=== PATIENT | male | born 1995 | race Caucasian/White ===

== ENCOUNTER 2017-03-02 09:43 | Emergency (ER) | payer SELFPAY ==
--- NOTE | 2017-03-02 11:06 | ERNOTE ---
Upper Extremity HPI - Narrative Date of Service: 03/02/17 - General Extremities Pain Location: hand: right Time Seen by Provider: 03/02/17 11:04 Source: patient, RN notes reviewed Exam Limitations: no limitations - Immun/Allergies/Home Medications Immunizations: IMMUNIZATION HX Immunizations Up to Date Yes History of Influenza Vaccine Yes Hx Pneumococcal Vaccination No Allergies/Adverse Reactions: Allergies Allergy/AdvReac Type Severity Reaction Status Date / Time Iodine and Iodide Containing Allergy Intermediate Hives Verified 03/02/17 10:17 Produc Home Medications: HOME MEDICATIONS NK [No Home Medication] 03/02/17 [Last Taken Unknown] - History of Present Illness Narrative: Right hand pain and swelling - punched a tree last night, also has abrasions, reports tetanus is current Also reports a cough for several days Occurred: yesterday Location of Incident: home Severity: mild Method of Injury: Reports: direct blow Loss of Consciousness: Reports: no loss of consciousness Associated Symptoms: Denies: tingling, weakness, numbness distally Other Injuries: Reports: none Prior Treament: Denies: recently seen Review of Systems - Review of Systems Constitutional: Absent: fever, chills, malaise EYE: Present: no symptoms reported ENT: Present: nose congestion, nasal drainage. Absent: ear pain, sore throat Respiratory: Present: cough. Absent: shortness of breath, wheezing Cardiology: Absent: chest pain, syncope Gastrointestinal/Abdominal: Absent: nausea, abdominal pain Genitourinary: Present: no symptoms reported Musculoskeletal: Present: joint pain, joint swelling Skin: Present: change in color. Absent: rash, lesions Neurological: Absent: headache, dizziness/light-headedness Endocrine: Present: no symptoms reported Hematologic/Lymphatic: Present: no symptoms reported Psych: Present: no symptoms reported - Patient's Past Medical History Patient History - Medical: No pertinent hx Patient History - Cardiac/Respiratory: No pertinent hx Patient History - Cancer: No Hx of Cancer Patient History - Surgical Procedures: Appendectomy Patient History - Other: None - Social History Living Situations: other Abuse History: No History of abuse Psych History: No pertinent hx Smoking Status: Current every day smoker Cigarettes Packs Per Day: 1 Have you smoked in the past 12 months: Yes Do you dip or chew tobacco: Yes Alcohol Use: occasionally Drug Use: none - Immunizations Immunizations Up to Date: Yes Hx Pneumococcal Vaccination: No History of Influenza Vaccine: Yes Physical Exam - Physical Exam General Appearance: Present: wd/wn, alert, no apparent distress Eye Exam: Normal inspection: bilateral Ears, Nose, Throat: Present: nasal congestion, normal pharynx. Absent: abnormal TM (R), abnormal TM (L), sinus pain/drainage Neck: Present: normal inspection, nontender, supple, full range of motion. Absent: lymphadenopathy (R), lymphadenopathy (L) Respiratory: Present: no respiratory distress, no accessory muscle use, rhonchi - mild, scattered Cardiovascular/Chest: Present: regular rate, rhythm, no murmur, normal peripheral pulses Extremity Exam: Present: normal except - - Edema/erythema right hand 5th metacarpal region, normal ROM, mild tenderness to palpation Neurological Exam: Present: alert, oriented, normal mood/affect, no motor/ sensory deficits Skin Exam: Present: normal color, warm/dry, other - several small abrasions to dorsum of right hand ED Progress - Vital Signs Patient's Vital Signs:: I have reviewed the patient's vital signs. Vital Signs: Vital Signs 03/02/17 03/02/17 10:12 10:34 Temperature 36.7 C 36.9 C Pulse Rate 74 71 Respiratory 16 15 Rate Blood Pressure 117/81 112/63 O2 Sat by Pulse 96 97 Oximetry - X-Ray X-Ray #1 X-Ray: hand Interpretation: Reviewed by me X-ray Comments: Technique: Three views of right hand. Findings: Normal bony mineralization and alignment. No fracture or dislocation. There is soft tissue swelling overlying the dorsal aspect of the right hand in the region of the metacarpals. IMPRESSION: SOFT TISSUE SWELLING WITHOUT ACUTE OSSEOUS ABNORMALITY. Electronically signed by Curt Kaminski D.O.. Curt Kaminski DO - Progress/Reassessment Chief Complaint: Hand Injury/Pain Progress:: Unchanged Departure Clinical Impression: Upper respiratory infection, viral Contusion of hand Qualifiers: Encounter type: initial encounter Laterality: right Qualified Code(s): S60.221A - Contusion of right hand, initial encounter - Departure Disposition: Home self-care Condition: Good Instructions: Upper Respiratory Infection, Adult, [id number], Contusion, Easy -to-Read Additional Instructions: Ice and elevate hand as needed Apply antibiotic ointment to abrasions twice a day, keep wounds clean Robitussin DM for cough as directed on label Stop smoking
[2017-03-02 11:22] VITALS: BP 114/73
== END 2017-03-02 11:24 | disposition home or self-care (01) ==
LOC: ER 09:43
DX: J06.9 Acute upper respiratory infection, unspecified (principal); Z72.0 Tobacco use; S60.221A Contusion of right hand, initial encounter; X83.8XXA Intentional self-harm by other specified means, initial encounter; Y93.9 Activity, unspecified; Y92.007 Garden or yard of unspecified non-institutional (private) residence as the place of occurrence of the external cause